=== PATIENT | female | born 1945 | race Caucasian/White ===

== ENCOUNTER 2018-07-07 12:31 | Day surgery (SDC) | payer BC ==
[~2018-07-07] VITALS: Ht 172.7 cm; Wt 80.9 kg
[~2018-07-07 12:31] MED LIST: ASPIRIN E.C. 8181 MG PO; CENTRUM SILVER1 TA3 PO; COLACE 100100 MG/CAP PO; FEMARA 2.5MG2.5 MG PO; LIPITOR20 MG PO; LISINOPRIL2.5 MG PO; NITROQUICK0.4 MG SL; TOPROL XL100 MG PO
[2018-07-07 14:13] VITALS: BP 134/73; PULSE 70; TEMP 97.5
[2018-07-07] MEDS ORDERED: XARELTO20 MG PO (14:18)
[2018-07-07] MEDS ORDERED: MOTRIN 800800 MG/TAB PO (14:19)
[2018-07-07] MEDS ORDERED: LIVALO2 MG PO (14:22)
[2018-07-07] MEDS ORDERED: OYSCO 500 + D 51 TAB PO (14:22)
[2018-07-07] MEDS ORDERED: LOTENSIN5 MG PO (14:23)
[2018-07-07] MEDS ORDERED: GLUCOPHAGE500 MG/TAB PO (14:24)
[2018-07-07 16:20] VITALS: BP 156/67; PULSE 96; TEMP 98.7
[2018-07-07 16:35] VITALS: BP 147/91; PULSE 84
[2018-07-07 16:50] VITALS: BP 166/76; PULSE 75
[2018-07-07 18:42] VITALS: BP 164/86; PULSE 75
== END 2018-07-07 16:59 | disposition home or self-care (01) ==
LOC: SDCO 12:31
DX: R10.9 Unspecified abdominal pain (principal); Z87.442 Personal history of urinary calculi; I25.10 Atherosclerotic heart disease of native coronary artery without angina pectoris; I25.2 Old myocardial infarction; I10 Essential (primary) hypertension; E11.9 Type 2 diabetes mellitus without complications; Z79.84 Long term (current) use of oral hypoglycemic drugs; Z79.899 Other long term (current) drug therapy; Z79.01 Long term (current) use of anticoagulants; Z85.3 Personal history of malignant neoplasm of breast; Z85.79 Personal history of other malignant neoplasms of lymphoid, hematopoietic and related tissues; G47.30 Sleep apnea, unspecified; I38 Endocarditis, valve unspecified; Z82.49 Family history of ischemic heart disease and other diseases of the circulatory system
CPT/HCPCS: C1769; C2617; J0330; J1100; J1170; J2405; J2704; J7030

== ENCOUNTER 2018-09-13 10:15 | Day surgery (SDC) | payer BC ==
[~2018-09-13] VITALS: Ht 172.7 cm; Wt 84.0 kg
[~2018-09-13 10:15] MED LIST changes: +GLUCOPHAGE500 MG/TAB PO; +LIVALO2 MG PO; +LOTENSIN5 MG PO; +MOTRIN 800800 MG/TAB PO; +OYSCO 500 + D 51 TAB PO; +XARELTO20 MG PO
[2018-09-13 12:20] VITALS: BP 148/71; PULSE 68; TEMP 97.9
[2018-09-13] MEDS ORDERED: LIVALO1 MG PO (12:56)
[2018-09-13] MEDS ORDERED: PROBIOTIC FORMU1 CAP PO (12:58)
[2018-09-13] MEDS ORDERED: XARELTO2.5 MG PO (12:58)
[2018-09-13 16:27] VITALS: TEMP 99.6
[2018-09-13 16:50] VITALS: BP 141/66; PULSE 73
--- NOTE | 2018-09-13 16:50 | NUR ---
Patient returns to room and is awake and alert. IV fluids infusing and siderails up x2. Spouse in room. Allowed to rest. Offers no complaints of pain or nausea. Call light in reach.
[2018-09-13 17:05] VITALS: BP 133/66; PULSE 73
--- NOTE | 2018-09-13 17:05 | NUR ---
Awake and taking sips of water.
[2018-09-13 17:20] VITALS: BP 148/73; PULSE 75
--- NOTE | 2018-09-13 17:20 | NUR ---
Patient assisted up to the bathroom and voids. Gait steady with standby assist. Voids blood tinged urine and returns to room. Eating applesauce.
[2018-09-13 17:21] VITALS: BP 141/70; PULSE 70
--- NOTE | 2018-09-13 17:30 | NUR ---
IV discontinued and assisted with dressing.
--- NOTE | 2018-09-13 17:40 | NUR ---
Given dismissal instructions and voices understanding of these. Provided office number for questions and concerns. Patient to return on Tuesday09/15/18 at 0800 to the office to have stent removed. Instructed to take Tylenol for discomfort.
--- NOTE | 2018-09-13 17:44 | NUR ---
Patient dismissed to home per private vehicle driven by spouse and taken to the front door per wheelchair and assisted into car with instructions in hand.
== END 2018-09-13 17:44 | disposition home or self-care (01) ==
LOC: SDCO 10:15
DX: N20.1 Calculus of ureter (principal); I25.10 Atherosclerotic heart disease of native coronary artery without angina pectoris; I25.2 Old myocardial infarction; I10 Essential (primary) hypertension; I48.91 Unspecified atrial fibrillation; G47.33 Obstructive sleep apnea (adult) (pediatric); E66.9 Obesity, unspecified; E11.9 Type 2 diabetes mellitus without complications; D64.9 Anemia, unspecified; Z90.710 Acquired absence of both cervix and uterus; Z90.10 Acquired absence of unspecified breast and nipple; Z79.84 Long term (current) use of oral hypoglycemic drugs; Z79.01 Long term (current) use of anticoagulants; Z95.0 Presence of cardiac pacemaker
CPT/HCPCS: C1769; C2617; J0690; J1100; J1170; J1885; J2405; J2704; J3010; J7120; Q9967